=== PATIENT | female | born 1980 | race Caucasian/White ===

== ENCOUNTER 2021-03-10 13:22 | Emergency (ER) | payer SELFPAY ==
--- NOTE | ~2021-03-10 | CT_ITS ---
EXAMINATION: CT abdomen pelvis wo con DATE: 03/10/2021 14:51 INDICATION: Right flank pain. History of kidney stones. TECHNIQUE: Computed tomography (CT) of the abdomen and pelvis was performed without intravenous contr ast. Automated exposure control and iterative reconstruction technique were employed. Exam dose: 671 .08 mGy-cm total exam DLP. COMPARISON: None. FINDINGS: Mild bilateral lower lobe dependent atelectasis. Normal heart size. No pericardial or pleural effusion. Status post cholecystectomy. No bile duct or pancreatic duct dilatation. Diffuse hepatic steatosis. No hepatic or pancreatic space-occupying mass lesion is evident. No spleni c mass or splenomegaly. No adrenal mass lesion. A very subtle pinpoint nonobstructing lower pole left renal calculus is suggested. No other urinary t ract calculus or hydroureteronephrosis is evident. Approximately 3 mm probable mid left renal cyst. No other renal space-occupying mass lesion is eviden t on this limited noncontrast examination. Normal caliber of the abdominal aorta. No intraperitoneal or retroperitoneal or pelvic mass lesion or adenopathy or ascites. The uterus and adnexal areas and urinary bladder are unremarkable. Status post appendectomy. No bowel obstruction, bowel wall thickening, pneumatosis or intraperitoneal free air is detected. IMPRESSION: No ureteral obstruction or hydroureteronephrosis Very subtle pinpoint nonobstructing lower pole left renal calculus is suggested 3 mm mid left renal cyst Hepatic steatosis Status post cholecystectomy Status post appendectomy Reviewed, dictated and finalized at [facility]. Reviewed, dictated and finalized at [facility].
[2021-03-10 13:26] VITALS: BP 125/84; PULSE 97; RESP 20; TEMP 36.3; O2SAT 100
--- NOTE | 2021-03-10 13:57 | ED.ABDPAIN ---
HPI - Abdominal Pain General Chief Complaint: Abdominal Pain Stated Complaint: right flank pain/blood in urine Time Seen by Provider: 03/10/21 13:31 Source: patient Mode of arrival: ambulatory Limitations: no limitations History of Present Illness HPI narrative: Patient is a 40-year-old female who presents complaining of right flank pain sudden onset this a.m. She reports a history of kidney stones in the past and reports it feels same. She reports hematuria starting this a.m. She reports mild nausea. Reports pain is 7/10. Denies vomiting or diarrhea. Patient reports the pain radiates from right flank to right abdomen. She denies all other complaints at this time. She denies taking [id number] medications prior to arrival. MD elicited complaint: flank pain Related Data Allergies Allergy/AdvReac Type Severity Reaction Status Date / Time NSAIDS (Non-Steroidal Allergy Swelling Verified 03/10/21 13:59 Anti-Inflamma of Lip/Tongue/Throat adhesive tape AdvReac Rash Verified 03/10/21 13:52 iohexol AdvReac Swelling Verified 03/10/21 14:07 [From contrast - CT, X-RAY] of Lip/Tongue/Throat morphine AdvReac Itching Verified 03/10/21 15:52 Penicillins AdvReac Hives Verified 03/10/21 13:59 Review of Systems Review of Systems: Narrative: CONSTITUTIONAL: Denies fever, chills, or sweats. EYES: Denies visual changes, redness, or discharge. ENT: Denies rhinorrhea, congestion, sore throat, or otalgia. CARDIOVASCULAR: Denies chest pain, palpitations, or edema. RESPIRATORY: Denies cough or dyspnea. GASTROINTESTINAL: Denies abdominal pain, nausea, vomiting, or diarrhea. GENITOURINARY: Reports hematuria and right flank pain SKIN: Denies rash or itching. MUSCULOSKELETAL: Denies back pain, joint pain, or myalgia. NEUROLOGIC: Denies headache, numbness, dizziness, or weakness. PSYCHIATRIC: Denies anxiety or depression. [facility] Past Medical History Medical History Kidney stone Surgical History Surgical History History of ureter stent Family History Family History (Updated 06/06/21 @ 14:02 by MARY LOU Puckett) Other Hypertension Social History Social History (Updated 03/10/21 @ 14:02 by MARY LOU Puckett) Smoking status: Never smoker Alcohol intake: never Substance use: never Living arrangements: with family Gender identity (if verbalized by the patient): Female Comments At the time of signature, I have reviewed and agree with nursing past medical, surgical, social, and family history unless otherwise noted. Please see nursing chart for further information. There is no relevant family history pertinent to the presenting complaint. Exam Narrative: Exam Narrative: GENERAL: Well-appearing, well-nourished, and in no acute distress. HEAD: Normocephalic, atraumatic. EYES: EOMI. No redness or drainage. ENT: Mucous membranes pink and moist. . CHEST: No respiratory distress. Clear to auscultation. HEART: Regular rate and rhythm. No murmur appreciated. Normal peripheral pulses. GI: Soft, nontender without rebound, or guarding. No distention. Bowel sounds normal in all quadrants. No CVA tenderness. MUSCULOSKELETAL: No bony tenderness. EXTREMITIES: Normal range of motion. No edema. SKIN: Warm, dry, no rash. NEURO: No focal deficits. Alert and oriented x3. Gait steady. PSYCH: Normal affect. No signs of depression or anxiety. Course Reevaluation(s) Reevaluation #1: Patient requesting narcotic pain medication for pain. Discussed with patient that CT shows no acute processes. Offered patient multiple non narcotic pain medications which she declined and requests discharge at this time. Vital Signs Vital signs: Vital Signs Temperature 36.3 C L 03/10/21 13:26 Pulse Rate 97 03/10/21 13:26 Respiratory Rate 20 03/10/21 13:26 Blood Pressure 125/84 03/10/21 13:26 Pulse Oxim
[2021-03-10 14:23] LABS: Add Urine Microscopic? YES; Appearance Urine Cloudy (Clear); Bilirubin Urine 1+ (Negative); Blood Urine 3+ (Negative); Color Urine Amber (Yellow); Glucose Urine UA Negative (Negative); Ketones Urine Negative (Negative); Leukocyte Esterase Ur 1+ LEU/UL (Negative); Mucus Urine Heavy /lpf; Nitrate Urine Negative (Negative); Protein Urine 2+ mg/dL (Negative); RBC Urine >75 /hpf (0-2); Specific Grav Ur 1.025 (1.001-1.035); Squamous Epithelial Cell Urine Many /hpf (Few); WBC Urine 21-30 /hpf
[2021-03-10 14:32] LABS: Basophils Percent Auto 0.7 % (0.2-1.2); Eosinophils Absolute Auto 1.4 K/mm3 (0-0.3); Eosinophils Percent Auto 23.3 % (0-4.4); Hematocrit 35.1 % (37.0-47.0); Hemoglobin 11.6 g/dL (12.0-15.0); Immature Granulocyte Absolute 0.03 K/mm3 (0.00-0.031); Immature Granulocyte Percent A 0.5 % (0-0.5); Lymphocytes Percent Auto 28.3 % (18.3-44.2); Mean Corpuscular Hemoglobin 28.7 pg (26-34); Mean Corpuscular Volume 86.9 fl (80-100); Mean Platelet Volume 10.4 fl (7.4-10.4); Monocytes Absolute Auto 0.5 K/mm3 (0.1-0.6); Monocytes Percent Auto 7.7 % (2.6-8.5); Neutrophils Absolute Auto 2.4 K/mm3 (1.3-6.7); Neutrophils Percent Auto 39.5 % (45.5-73.1); Platelet Count Result 255 k/mm3 (150-375); Red Blood Count 4.04 M/mm3 (4.2-5.4); Red Cell Distribution Width 13.2 % (11.5-14.5)
[2021-03-10] MEDS: MORPHINE SULFATE (*CRX) 4 MG/ML INJ IV PUSH (14:38)
[2021-03-10] MEDS: ONDANSETRON INJ 4 MG/2 ML VIAL IV PUSH (14:38)
[2021-03-10 14:42] LABS: Anion Gap 10 mmol/L (8-16); Blood Urea Nitrogen 7 mg/dL (7-17); Calcium 9.9 mg/dL (8.4-10.2); Carbon Dioxide 27 mmol/L (22-30); Chloride 106 mmol/L (98-107); Estimated CRCL calculation 94 ml/min; Estimated Glomerular Filt Rate > 60; Glucose 107 mg/dL (65-105); Sodium 143 mmol/L (137-145)
[2021-03-10] MEDS: diphenhydrAMINE HCl INJ 50 MG/ML VIAL (14:45)
--- NOTE | 2021-03-10 16:05 | PC.NURSE ---
went to discharge patient and patient not agreeing with discharge. patient states there is something wrong with me, it is not just a UTI. I am in a lot of pain charge nurse and EDP aware of situation. EDP offered pt multiple other pain medications and pt declined and wants to get a second opinion. pt signed discharge paperwork, but refusing to take her discharge paperwork or to tow picker her medications that were sent to preferred pharmacy.
== END 2021-03-10 16:14 | disposition home or self-care (01) ==
PROVIDERS: Emergency Provider Nurse Practitioner
DX: N39.0 Urinary tract infection, site not specified (principal); Z87.442 Personal history of urinary calculi; N28.1 Cyst of kidney, acquired; K76.0 Fatty (change of) liver, not elsewhere classified
CPT/HCPCS: 36415; 74176; 80048; 81001; 81025; 85025; 87086; 87088; 96374; 96375; 99284; J1200; J2270; J2405